=== PATIENT | female | born 1985 | race Caucasian/White ===

== ENCOUNTER → 2016-10-21 | Outpatient (REF) | payer OTHER | LOC: M LAB REF 15:32 | PROVIDERS: ATTEND Physician Assistant | DX: J02.9 Acute pharyngitis, unspecified (principal) ==

== ENCOUNTER → 2022-03-26 | Outpatient (REF) | payer BC | LOC: M WUC 12:10 | PROVIDERS: ATTEND Physician Assistant | DX: J02.9 Acute pharyngitis, unspecified (principal) ==

== ENCOUNTER → 2022-08-11 | Outpatient (REF) | payer BC | LOC: M LAB REF 09:53 | PROVIDERS: ATTEND Family Medicine | DX: R03.0 Elevated blood-pressure reading, without diagnosis of hypertension (principal); R63.5 Abnormal weight gain ==

== ENCOUNTER → 2022-09-21 | Outpatient (CLI) | payer BC | LOC: M PLAIMG 07:41 | PROVIDERS: ATTEND Physical Medicine & Rehabilitation | DX: R20.2 Paresthesia of skin (principal); M50.31 Other cervical disc degeneration, high cervical region; M50.321 Other cervical disc degeneration at C4-C5 level; M50.322 Other cervical disc degeneration at C5-C6 level; M50.323 Other cervical disc degeneration at C6-C7 level ==

== ENCOUNTER → 2024-02-21 | Outpatient (CLI) | payer BC ==
[~2024-02-21] MED LIST: ISOVUE-370 76% 100ML VIAL As Ordered ONE
== END ==
LOC: M RAD 07:36
PROVIDERS: ATTEND Physician Assistant
DX: M27.9 Disease of jaws, unspecified (principal)
CPT/HCPCS: 70491; Q9967

== ENCOUNTER → 2024-10-16 | Outpatient (CLI) | payer BC | LOC: M RAD 11:04 | PROVIDERS: ATTEND Physician Assistant | DX: M27.9 Disease of jaws, unspecified (principal); Z98.890 Other specified postprocedural states ==

== ENCOUNTER → 2025-02-15 | Outpatient (CLI) | payer BC ==
[~2025-02-15] MED LIST changes: +ISOVUE-370 76% 100 ML VIAL As Ordered ONE; -ISOVUE-370 76% 100ML VIAL As Ordered ONE
== END ==
LOC: M RAD 06:37
PROVIDERS: ATTEND Oral & Maxillofacial Surgery
DX: M27.8 Other specified diseases of jaws (principal)
CPT/HCPCS: 70491; Q9967